=== PATIENT | female | born 1970 | race African-American/Black ===

== ENCOUNTER 2017-08-12 06:10 | Emergency (ER) | payer BC, OTHER ==
[2017-08-12] MEDS ORDERED: IBUPROFEN 800 MG TABLET PO ONE (06:55)
--- NOTE | 2017-08-12 06:55 | ER Document Report ---
ED Headache - General Chief Complaint: Headache Stated Complaint: HEADACHE Time Seen by Provider: 08/12/17 06:35 Notes: This is a 46-year-old female patient to the emergency department with chief complaint of headache for the last 4 days. Not the worst headache of her life. Never has really had headaches though. Did not come on suddenly. Does not know when it really started. Not associated with any particular event. Denies any vision changes. Denies any fever, chills, sweats. Denies any neck pain. Denies any weakness of the upper or lower extremities. No numbness to the face. No confusion. No other people in the home with headaches. No exposure to carbon monoxide or carbon monoxide risks. No significant family history of headaches. States that the only thing that seems to run in the family is high blood pressure. States that her father of a brain tumor of some sort but thinks it was more likely a pituitary tumor. It was a slow-growing tumor and he had surgery for but never did really completely recover and subsequently of complications. Obviously based on his history patient has a little concerned of having something like her father had. TRAVEL OUTSIDE OF THE [place] IN LAST 30 DAYS: No - HPI Patient complains to provider of: Headache Onset was: Cannot pinpoint, Gradual. denies: Abrupt, Thunderclap, While turning head, Other Timing: Still present Quality of pain: Throbbing Pain Level: 4 Associated symptoms: None - Related Data Allergies/Adverse Reactions: No Known Allergies Allergy (Verified 08/12/17 07:12) Past Medical History - General Information source: Patient - Social History Smoking Status: Never Smoker Frequency of alcohol use: None Drug Abuse: None Lives with: Spouse/Significant other Family History: Reviewed & Not Pertinent - Medical History Medical History: Negative Surgical Hx: Other - Review of Systems - Review of Systems Constitutional: denies: Chills, Diaphoresis, Fever, Malaise EENT: denies: Eye discharge, Blurred vision, Double vision, Ear pain, Nose pain , Sinus pressure, Sinus discharge, Throat pain, Difficulty swallowing, Mouth pain, Mouth swelling Cardiovascular: denies: Chest pain, Palpitations, Heart racing, Orthopnea, Dyspnea, Syncope, Dizziness, Lightheaded Respiratory: denies: Cough, Hurts to breathe, Hemoptysis, Short of breath, Wheezing Gastrointestinal: denies: Abdominal pain, Diarrhea, Nausea, Vomiting Genitourinary: denies: Burning, Dysuria, Discharge Musculoskeletal: denies: Back pain, Gout, Joint pain, Muscle pain, Muscle stiffness, Neck pain Skin: denies: Change in color, Dryness, Lesions, Rash Hematologic/Lymphatic: denies: Anemia, Blood clots, Easy bleeding Neurological/Psychological: Headaches. denies: Confusion, Sensory change, Weakness, Gait changes, Paralysis, Seizure, Numbness Physical Exam - Vital signs Vitals: Temp Pulse Resp BP Pulse Ox 98 F 74 18 150/92 H 100 08/12/17 06:11 08/12/17 06:11 08/12/17 06:11 08/12/17 06:11 08/12/17 06:11 Interpretation: Normal - General General appearance: Appears well, Alert - HEENT Head: Normocephalic, Atraumatic Eyes: Normal Pupils: PERRL Anterior chamber: Normal Fundascopic: Normal Nerve palsy: No Sinus: Normal Nasal: Normal Mouth/Lips: Normal Mucous membranes: Normal Pharynx: Normal Neck: Normal. No: Brudzinski, Meningismus, Neck mass, Supple - Respiratory Respiratory status: No respiratory distress Chest status: Nontender Breath sounds: Normal Chest palpation: Normal - Cardiovascular Rhythm: Regular Heart sounds: Normal auscultation Murmur: No - Abdominal Inspection: Normal Distension: No distension Bowel sounds: Normal Tenderness: Nontender Organomegaly: No organomegaly - Back Back: Normal, Nontender - Extremities General upper extremity: Normal inspection, Nontender, Normal color, Normal ROM , Normal temperature General lower extremity: Normal inspection, Nontender, Normal color, Normal ROM , Normal temperature, Normal weight bearing. No: Nellie's sign - Neurological Neuro grossly intact: Yes Cognition: Normal Orientation: AAOx4 [place] Coma Scale Eye Opening: Spontaneous Eli Coma Scale Verbal: Oriented [place] Coma Scale Motor: Obeys Commands [place] Coma Scale Total: 15 Speech: Normal Motor strength normal: LUE, RUE, LLE, RLE Sensory: Normal - Psychological Associated symptoms: Normal affect, Normal mood - Skin Skin Temperature: Warm Skin Moisture: Dry Skin Color: Normal Course - Re-evaluation Re-evalutation: 08/12/17 07:27 This is a well-appearing female in no acute distress with complaint of headache. Will get a head CT. Ibuprofen and reassess 08/12/17 07:[address] 08/12/17 06:55 IMPRESSION: 1. No acute intracranial abnormality identified. Visualized paranasal sinuses are well aerated. This exam was performed according to our departmental dose-optimization program, which includes automated exposure control, adjustment of the mA and/or kV according to patient size and/or use of iterative reconstruction technique. CT head unremarkable. Ibuprofen given as patient did not want an IV. At this time has low risk for headaches. Did not feel this is subarachnoid hemorrhage. CT head was unremarkable for any significant masses or lesions. Sinuses were patent. Will recommend at this time anti-inflammatory therapy as first-line treatment. Patient incidentally does have some high blood pressure. This could be contributing to her headache as well. Because this is the only time that we have ever seen her and this is a single elevated blood pressure reading do not feel compelled to start on treatment but will give her information with regards to high blood pressure and patient will need to follow-up with her regular doctor to consider treatment for that. - Vital Signs Vital signs: Temp Pulse Resp BP Pulse Ox 98 F 74 18 150/92 H 100 08/12/17 06:11 08/12/17 06:11 08/12/17 06:11 08/12/17 06:11 08/12/17 06:11 Discharge - Discharge Clinical Impression: Headache Qualifiers: Headache type: unspecified Headache chronicity pattern: acute headache Intractability: not intractable Qualified Code(s): R51 - Headache Condition: Good Disposition: HOME, SELF-CARE Instructions: Headache ([facility]) Additional Instructions: High Blood Pressure When your blood pressure was taken today it was elevated. Today's reading was___150/90 . Pre-hypertension/Hypertension: The patient has been informed that they may have pre-hypertension or Hypertension based on a blood pressure reading in the emergency department. I recommend that the patient call the primary care provider listed on their discharge instructions or a physician of their choice this wee to arrange follow up for further evaluation of possible pre- hypertension or Hypertension. Sometimes, stress or illness causes a temporary elevation of your blood pressure. We suggest that you get your blood pressure measured three more times during the next few days to see if this is more than a temporary abnormality. If your blood pressure is greater than 150/90 on each occasion, you must have treatment. Some simple things you can do to help are: If you have blood pressure medicine but aren't using it regularly, start taking it again. Get some aerobic exercise for at least 20 minutes on a daily basis. (See your doctor before beginning a new exercise program.) Eat a low-fat diet. Lose excess weight. Avoid salty foods and avoid adding salt to any of the foods you eat. Avoid diet pills, decongestants, "energizing" herbs, and other medicines that elevate blood pressure. If left untreated, hypertension greatly enhances your risk for developing heart disease and strokes. Please don't ignore this problem. Prescriptions: Ibuprofen [Motrin 800 mg Tablet] 800 mg PO Q8H PRN 5 Days #15 tab PRN Reason: Referrals: CONNIE SAHA MD [Primary Care Provider] - Follow up as needed
--- NOTE | 2017-08-12 07:16 | RADIOLOGY REPORT (SQ) ---
EXAM DESCRIPTION: CT HEAD WITHOUT CLINICAL HISTORY: facial pain, sinus pressure COMPARISON: None available TECHNIQUE: Axial CT of the head obtained from the skull apex to the skull base without contrast. FINDINGS: No acute intracranial hemorrhage identified. No mass, mass effect, shift of the midline, abnormal extra-axial fluid collection or CT evidence of acute ischemic change identified. The ventricular system is unremarkable. No acute abnormalities of the supratentorial white matter, basal ganglia, cerebellum, or brainstem. The visualized paranasal sinuses and the mastoids are clear. No skull fracture identified. Visualized orbits and globes are unremarkable. DLP:1017.17 mGy-cm IMPRESSION: 1. No acute intracranial abnormality identified. Visualized paranasal sinuses are well aerated. This exam was performed according to our departmental dose-optimization program, which includes automated exposure control, adjustment of the mA and/or kV according to patient size and/or use of iterative reconstruction technique.
[2017-08-12 08:56] LABS: MEAN CORPUSCULAR HEMOGLOBIN 16.8 pg (27.0-33.4); MEAN CORPUSCULAR HGB CONC 29.3 g/dL (32.0-36.0); PLATELET COUNT 460 10^3/uL (150-450); RED BLOOD COUNT 4.35 10^6/uL (3.72-5.28); RED CELL DISTRIBUTION WIDTH 19.5 % (11.5-14.0); WHITE BLOOD COUNT 3.2 10^3/uL (4.0-10.5)
[2017-08-12 09:19] LABS: HEMOGLOBIN 7.3 g/dL (12.0-15.5)
[2017-08-12 09:20] LABS: MEAN CORPUSCULAR VOLUME 58 fl (80-97)
[2017-08-12 09:26] LABS: ABSOLUTE MONOCYTES # (MANUAL) 0.3 10^3/uL (0.1-1.4); ABSOLUTE NEUTROPHILS# (MANUAL) 1.9 10^3/uL (1.7-8.2); ANISOCYTOSIS 2+; BASOPHILS % (MANUAL) 1 % (0-2); EOSINOPHILS % (MANUAL) 2 % (0-6); HYPOCHROMASIA 2+; LYMPHOCYTES % (MANUAL) 29 % (13-45); MONOCYTES % (MANUAL) 9 % (3-13); OVALOCYTES 1+; PLATELET COMMENT ADEQUATE; POIKILOCYTOSIS 1+; SEGMENTED NEUTROPHILS % (MAN) 58 % (42-78); TOTAL CELLS COUNTED 100
[2017-08-12 09:55] LABS: IRON(TIBC) 18.2 ug/dL (37-170)
[2017-08-12 10:04] LABS: ABSOLUTE RETICS # 0.045 10^6/uL (0.028-0.122); RETICULOCYTE COUNT (AUTO) 1.06 % (0.66-2.85)
[2017-08-12 10:11] VITALS: BP 137/71
[2017-08-12 11:27] LABS: FERRITIN 3.63 ng/mL (6.2-137.0)
[2017-08-15 14:46] LABS: PATH REVIEW PATHOLOGIST REVIEWED
== END 2017-08-12 10:20 | disposition home or self-care (01) ==
LOC: ER 06:10
DX: R51 Headache (principal); D50.9 Iron deficiency anemia, unspecified; R03.0 Elevated blood-pressure reading, without diagnosis of hypertension
CPT/HCPCS: 36415; 70450; 82607; 82728; 82746; 83540; 83550; 84466; 85025; 85045; 99284